=== PATIENT | female | born 1940 | race Caucasian/White ===

== ENCOUNTER 2018-09-30 17:06 | Emergency (ER) | payer MEDICARE, MEDICAID ==
[2018-09-30] MEDS ORDERED: IPRATROPIUM/ALBUTEROL (0.5MG/3MG) NEB INH ONE (17:33)
[2018-09-30] MEDS ORDERED: METHYLPREDNISOLONE PF 125MG/VIAL IVPB ONE (17:36)
--- NOTE | 2018-09-30 17:43 | Emergency Department Record ---
History of Present Illness - General Chief Complaint: Shortness of breath Stated Complaint: SOB Time Seen by Provider: 09/30/18 17:35 Source: Patient Mode of Arrival: Wheelchair Limitations: No limitations - History of Present Illness Initial Comments: 78 yo female presents to ED for evaluation of shortness of breath for the past several weeks. Patient reports that her symptoms began as a sinus infection which then "when into my lungs". Patient does report a history of asthma, has been using a nebulizer at home as needed. Patient denies fevers, chills, productive cough symptoms, or chest discomfort symptoms. Patient does report wheezing symptoms. MD Complaint: Shortness of breath Onset/Timin -: Week(s) Severity: Moderate Consistency: Intermittent Improves With: Bronchodilators Worsens With: Coughing, Exertion Known History Of: Asthma Associated Symptoms: Cough Treatments Prior to Arrival: Bronchodilator - Related Data Home Oxygen Therapy: No Home Oxygen Amount: none Allergies Allergy/AdvReac Type Severity Reaction Status Date / Time Penicillins [PENICILLINS] Allergy Unknown facial Unverified 09/30/18 17:30 swelling Travel Screening - Travel/Exposure Within Last 30 Days Have you traveled within the last 30 days?: No Review of Systems Constitutional: Denies: Chills, Fever, Malaise, Night sweats Eyes: Denies: Eye discharge, Eye pain ENT: Reports: Congestion. Denies: Ear pain, Epistaxis Respiratory: Reports: Cough, Dyspnea, Wheezes Cardiovascular: Reports: Dyspnea on exertion. Denies: Chest pain Endocrine: Denies: Fatigue, Heat or cold intolerance Gastrointestinal: Denies: Constipation, Nausea, Vomiting Genitourinary: Denies: Incontinence, Retention Musculoskeletal: Denies: Arthralgia, Back pain Skin: Denies: Bruising, Change in color Neurological: Denies: Abnormal gait, Confusion, Headache, Tingling, Tremors Psychiatric: Denies: Anxiety Hematological/Lymphatic: Denies: Anemia, Blood Clots Past Medical History - SOCIAL HISTORY Smoking Status: Former smoker Alcohol Use: None Drug Use: None - RESPIRATORY Hx Respiratory Disorders: Yes Hx Asthma: Yes Hx Bronchitis: Yes Hx COPD: Yes - CARDIOVASCULAR Hx Cardio Disorders: Yes Hx Hypertension: Yes - NEURO Hx Neuro Disorders: No - GI Hx GI Disorders: No - Hx Genitourinary Disorders: Yes Hx UTI: Yes - ENDOCRINE Hx Endocrine Disorders: Yes Hx Diabetes: Yes (type 2) - MUSCULOSKELETAL Hx Musculoskeletal Disorders: No - PSYCH Hx Psych Problems: Yes Hx Depression: Yes - HEMATOLOGY/ONCOLOGY Hx Hematology/Oncology Disorders: No Family Medical History Any Significant Family History?: No Physical Exam - General General Appearance: Alert, Oriented x3, Cooperative, Moderate distress, Other ( Mild respiratory distress on examination c/w tachypnea, mild-moderate wheezes bilaterally, decreased BS bilaterally) Limitations: No limitations - Head Head exam: Atraumatic, Normocephalic Head exam detail: negative: Abrasion, Contusion, Vazquez's sign, General tenderness, Hematoma, Laceration - Eye Eye exam: Normal appearance. negative: Conjunctival injection, Periorbital swelling, Periorbital tenderness, Scleral icterus - ENT Ear exam: negative: Auricular hematoma, Auricular trauma Nasal Exam: negative: Active bleeding, Discharge, Dried blood, Foreign body Mouth exam: negative: Drooling, Laceration, Muffled voice, Tongue elevation - Neck Neck exam: Normal inspection. negative: Meningismus, Tenderness - Respiratory Respiratory exam: Prolonged expiratory, Wheezes. negative: Rhonchi, Stridor - Cardiovascular Cardiovascular Exam: Regular rate, Normal rhythm, Normal heart sounds - GI/Abdominal GI/Abdominal exam: Soft. negative: Distended, Rebound, Rigid, Tenderness - Rectal Rectal exam: Deferred - exam: Deferred - Extremities Extremities exam: Pedal edema, Other (Mild-moderate lower extremity edema bilaterally). negative: Tenderness - Back Back exam: Denies: CVA tenderness (R), CVA tenderness (L) - Neurological Neurological exam: Alert, Normal gait, Oriented X3 - Psychiatric Psychiatric exam: Normal affect, Normal mood - Skin Skin exam: Normal color. negative: Abrasion Type of lesion: negative: abrasion Course Vital Signs 09/30/18 17:12 Temperature 97.5 F L Pulse Rate 80 Respiratory 24 Rate Blood Pressure 137/88 Pulse Ox 92 L - Reevaluation(s) Reevaluation #1: 09/30/18 17:59 EKG: NSR 71, PVCs present Normal axis, normal intervals No acute ST-T wave changes are present Reevaluation #2: 09/30/18 18:21 Laboratory studies were reviewed and are grossly unremarkable for an acute process except for: Troponin 0.032. Patient is currently in radiology. Reevaluation #3: 09/30/18 18:38 Patient was reassessed, BS are improved on re-examination. Awaiting CXR interpretation. Reevaluation #4: 09/30/18 18:56 Case was discussed with Dr. Daly, as the patient's troponin is elevated, will prefer transfer to a cath-lab capable facility for evaluation. CXR: Possible RLL infiltrate. Rocephin 1 gram ordered to infuse, page sent to Dr. Hutchison for transfer to [facility] per patient choice. Reevaluation #5: 09/30/18 19:06 Case was discussed with Dr. Hutchison, will accept admission for transfer at this time. Medical Decision Making - Lab Data Result diagrams: 09/30/18 17:35 09/30/18 17:35 Disposition Disposition: Transfer Clinical Impression: Elevated troponin CAP (community acquired pneumonia) Qualifiers: Laterality: right Lung location: lower lobe of lung Qualified Code(s): J18.1 - Lobar pneumonia, unspecified organism Disposition: Acute Care Hospital Transfer Transfer To: [facility] Reason For Transfer: CAP, Elevated troponin Accepting Physician: Foster Time Discussed w/Accepting Physician: 19:00 Condition: (2) Stable Forms: Patient Portal Access Time of Disposition: 19:00 Quality - Quality Measures Quality Measures: N/A - Blood Pressure Screening Does Patient Have Any of the Following: Active Dx of HTN Blood Pressure Classification: Pre-Hypertensive BP Reading Systolic Measurement: 137 Diastolic Measurement: 88 Screening for High Blood Pressure: Patient Exclusion, Hx of HTN [G9744]
[2018-09-30] MEDS ORDERED: 0.9 % SODIUM CHLORIDE 1000ML 1,000 ML IV SCH (17:45)
[2018-09-30 17:54] LABS: BASO % 0.5 % (0-6); EOS % 4.6 % (0-6); GRAN % 50.7 % (47-80); HEMATOCRIT 38.2 % (35.0-47.0); HEMOGLOBIN 12.6 gm/dl (11.6-16.0); LYMPH % 37.5 % (16-45); MEAN CELL VOLUME 95.5 fl (81-97); MEAN CORPUSCULAR HEMOGLOBIN 31.5 pg (27-33); MEAN PLATELET VOLUME 9.8 fl (7.4-10.4); MONO % 6.7 % (0-9); PLATELET COUNT 328 K/uL (130-400); RED CELL DISTRIBUTION WIDTH 12.9 % (11.5-14.5)
[2018-09-30 18:03] LABS: BILIRUBIN,TOTAL 0.2 mg/dL (0.2-1.0); CREATININE 1.2 mg/dL (0.5-0.9)
[2018-09-30 18:09] LABS: ALB/GLOB RATIO 1.4 (1.1-1.8); ALBUMIN 4.1 g/dL (4.0-5.0)
[2018-09-30 18:11] LABS: NTpro B-NATRIURETIC PEPTIDE 188.7 pg/mL (<450)
[2018-09-30] MEDS ORDERED: CEFTRIAXONE 1GM/50ML BAG IVPB SCH (19:00)
--- NOTE | 2018-10-02 22:26 | RADIOLOGY REPORT ---
EXAM: CHEST 2 VIEWS HISTORY: UNPRODUCTIVE COUGH. TECHNIQUE: Two views of the chest. COMPARISON: Chest radiograph 11/09/2013. FINDINGS: Cardiac silhouette within normal size limits. Thoracic aorta is calcified and mildly tortuous. Questionable subtle right lower lobe opacity. Otherwise, no focal pulmonary consolidation. No pleural effusion or pneumothorax. IMPRESSION: QUESTIONABLE SUBTLE RIGHT LOWER LOBE OPACITY; COULD REPRESENT ATELECTASIS OR AIR -SPACE DISEASE. JOB NUMBER: [id number] MTDD
== END 2018-09-30 21:22 | disposition short-term general hospital (02) ==
LOC: ER 17:06
DX: R79.89 Other specified abnormal findings of blood chemistry (principal); J18.1 Lobar pneumonia, unspecified organism; R60.0 Localized edema; R06.02 Shortness of breath; J44.9 Chronic obstructive pulmonary disease, unspecified; I10 Essential (primary) hypertension; Z87.891 Personal history of nicotine dependence
CPT/HCPCS: 99285 ×2; 96374; 96375; 85025; 80053; 84484; 83880; 71046; 94640; 93005; 93010; J0696; J2930; J7030

== ENCOUNTER 2019-07-12 16:58 | Inpatient (IN) | payer MEDICARE, MEDICAID ==
[2019-07-12] MEDS ORDERED: HYDROCODONE/APAP 5/325MG TABLET PO PRN (17:12)
[2019-07-12] MEDS ORDERED: ALBUTEROL SULFATE (0.083%) 2.5 MG/3 ML NEB INH PRN (17:13)
[2019-07-12] MEDS ORDERED: VANCOMYCIN 1GM/200ML PREMIX 1 GM/200 ML PIGGYBACK IVPB SCH (17:15)
[2019-07-12 17:59] LABS: ABSOLUTE NEUTROPHIL COUNT 6.99; BASO % 0.3 % (0-6); EOS % 1.5 % (0-6); GRAN % 60.8 % (47-80); HEMATOCRIT 37.6 % (35.0-47.0); HEMOGLOBIN 11.8 gm/dl (11.6-16.0); LYMPH % 28.6 % (16-45); MEAN CELL VOLUME 95.2 fl (81-97); MEAN CORPUSCULAR HEMOGLOBIN 29.9 pg (27-33); MEAN CORPUSCULAR HGB CONC 31.4 g/dl (32-36); MEAN PLATELET VOLUME 9.7 fl (7.4-10.4); MONO % 8.8 % (0-9); PLATELET COUNT 387 K/uL (130-400); RED BLOOD COUNT 3.95 M/uL (3.80-5.40); RED CELL DISTRIBUTION WIDTH 12.6 % (11.5-14.5); WHITE BLOOD COUNT W/O DIFF 11.5 K/uL (4.2-12.2)
[2019-07-12] MEDS ORDERED: FLU VAC QS 2019-20 (INPT, 6MO+) 60MCG/0.5ML IM ONE (18:05)
[2019-07-12 18:30] LABS: BILIRUBIN,TOTAL 0.3 mg/dL (0.2-1.0); CREATININE 1.2 mg/dL (0.5-0.9)
[2019-07-12 18:31] LABS: TOTAL PROTEIN 7.7 g/dL (6.6-8.7)
[2019-07-12 18:35] LABS: ALB/GLOB RATIO 1.2 (1.1-1.8); ALBUMIN 4.2 g/dL (4.0-5.0)
--- NOTE | 2019-07-12 19:01 | ULTRASOUND REPORT ---
EXAMINATION: Left Lower Extremity Venous Duplex Doppler Ultrasound EXAM DATE: 07/12/2019 6:55 PM TECHNIQUE: Real-time B-mode imaging with and without compression was used to evaluate the left lower extremity for deep venous thrombosis (DVT). Duplex Doppler with color and spectral Doppler was used . INDICATION: venous stasis ulcer COMPARISON: None FINDINGS: Left Common Femoral Vein: No DVT. Left Femoral Vein: No DVT. Left Popliteal Vein: No DVT. Left Proximal Deep Femoral Vein: No DVT. Left Posterior Tibial Veins: No DVT. Left Peroneal Veins: No DVT. Left proximal Great Saphenous Vein: No thrombus. Duplex Doppler: Spectral Doppler waveforms show normal respiratory phasicity in the common femoral vein. Additional Findings: The left external iliac vein could not compress to inguinal tenderness, but nor mal color flow is seen in the external iliac vein. IMPRESSION: There is no deep venous thrombosis in the visualized deep veins of the left lower extremity. Dictated by: Dann Hameed MD on 07/12/2019 6:57 PM. .
[2019-07-12] MEDS: PREGABALIN 25 MG CAPSULE PO SCH (22:16)
[2019-07-13 06:55] LABS: ABSOLUTE NEUTROPHIL COUNT 5.32; BASO % 0.3 % (0-6); EOS % 2.4 % (0-6); GRAN % 54.9 % (47-80); HEMATOCRIT 35.6 % (35.0-47.0); LYMPH % 33.2 % (16-45); MEAN CELL VOLUME 95.4 fl (81-97); MEAN CORPUSCULAR HGB CONC 30.9 g/dl (32-36); MEAN PLATELET VOLUME 9.7 fl (7.4-10.4); MONO % 9.2 % (0-9); PLATELET COUNT 395 K/uL (130-400); RED BLOOD COUNT 3.73 M/uL (3.80-5.40); RED CELL DISTRIBUTION WIDTH 12.6 % (11.5-14.5); WHITE BLOOD COUNT W/O DIFF 9.7 K/uL (4.2-12.2)
[2019-07-13 06:57] LABS: MEAN CORPUSCULAR HEMOGLOBIN 29.4 pg (27-33)
[2019-07-13 07:01] LABS: CREATININE 1.2 mg/dL (0.5-0.9)
[2019-07-13] MEDS ORDERED: VANCOMYCIN 1GM/200ML PREMIX 1 GM/200 ML PIGGYBACK IVPB SCH ×2 (08:00→20:00)
--- NOTE | 2019-07-13 08:32 | History & Physical ---
History of Present Illness - Date of Service Date of Service for History & Physical: 07/13/19 - History of Present Illness Admitting Diagnosis: cellulitis, venous stasis ulcer History of Present Illness: Mrs. King is a 79 y/o female here with left leg wound due to venous stasis ulcer. She states that the area is painful and warm and became itchy over the last few days. She stopped wearing the wound dressing because she says its been itchy and it causes her to scratch it. The patient was seen in the Family Practice yesterday afternoon by her PCP Yvonne Roman who observed that the wound was oozing and foul smelling. The patient has had wound care but had some difficult with follow up with them and also has some memory issues which makes managing her medications hard. Venous duplex Us was negative for DVT. CBC w/ diff and CMP were unremarkable. Wound culture was taken in the office and blood cultures taken on the inpatient unit are both pending. The patient was directly admitted and started on IV Vancomycin with renal dosing and wet to dry wound dressing. On rounds this morning the patient is awake, alert and oriented but does have some memory issues. She says that she feels good and that the wound looked better this morning when it was undressed. PCP: Yvonne Roman NP. Travel Screening - Travel/Exposure Within Last 30 Days Have you traveled within the last 30 days?: No - Travel/Exposure Within Last Year Have you traveled outside the [place] in the last year?: No - Additonal Travel Details Have you been exposed to anyone with a communicable illness?: No Past Medical History - SOCIAL HISTORY Smoking Status: Former smoker Alcohol Use: None Drug Use: None - RESPIRATORY Hx Respiratory Disorders: Yes Hx Asthma: Yes Hx Bronchitis: Yes Hx COPD: Yes - CARDIOVASCULAR Hx Cardio Disorders: Yes Hx Hypertension: Yes - NEURO Hx Neuro Disorders: No - GI Hx GI Disorders: No - Hx Genitourinary Disorders: Yes Hx UTI: Yes - ENDOCRINE Hx Endocrine Disorders: Yes Hx Diabetes: Yes (type 2) - MUSCULOSKELETAL Hx Musculoskeletal Disorders: No - PSYCH Hx Psych Problems: Yes Hx Depression: Yes - HEMATOLOGY/ONCOLOGY Hx Hematology/Oncology Disorders: No Family Medical History Any Significant Family History?: No H&P Meds/Allergies - Allergies Allergies: Allergies Allergy/AdvReac Type Severity Reaction Status Date / Time Penicillins [PENICILLINS] Allergy Unknown facial Unverified 07/12/19 16:19 swelling - Active Medications Active Medications: Current Medications Hydrocodone Bitart/Acetaminophen ([place] 5mg/325mg) 1 each PO Q6H PRN PRN Reason: PAIN - MILD TO MODERATE (1-7) Albuterol Sulfate (Albuterol Sulfate) 2.5 mg INH RESP.Q4H.WA PRN PRN Reason: DIFFICULTY IN BREATHING Enoxaparin Sodium (Lovenox) 30 mg SQ DAILY [facility] VANCOMYCIN 1GM/200ML PREMIX (Vancomycin 1 Gram/200 Ml Bag) 1 gm in 200 mls @ 200 mls/hr IVPB 0800,1999 [facility] Pregabalin (Lyrica) 25 mg PO BID FABRICIO Last Admin: 07/12/19 22:16 Dose: 25 mg Documented by: Physical Exam - Vital Signs Vital Signs: Vital Signs - Last 24 Hrs Temp Pulse Resp BP Pulse Ox 07/13/19 06:00 98.1 F 97 H 20 159/56 94 L 07/13/19 01:31 98.2 F 102 H 20 161/57 92 L 07/12/19 20:00 98.3 F 95 H 20 167/87 93 L 07/12/19 17:15 97.8 F 92 H 17 149/83 97 - General General Appearance: Alert, Oriented x3, Cooperative - Respiratory Respiratory exam: Normal lung sounds bilaterally - Cardiovascular Peripheral Pulses: 2+: Radial (R), Radial (L), Dorsalis Pedis (R), Dorsalis Pedis (L) - GI/Abdominal GI/Abdominal exam: Soft, Normal bowel sounds - Extremities Extremities exam: Calf tenderness (left calf tenderness ), Other (ulceration of the left posterior tibia ) - Neurological Neurological exam: Alert, Altered - Skin Skin exam: Other (ulceration of left posterior calf measuring approx 5x5cm in diameter, pink granulation tissue at edges, no weeping. ) Results - Labs Result Diagrams: 07/13/19 06:11 07/13/19 06:11 Labs Last 24 Hours: Laboratory Results - last 24 hr 07/12/19 07/12/19 07/13/19 17:20 17:20 06:11 WBC 11.5 RBC 3.95 Hgb 11.8 Hct 37.6 MCV 95.2 MCH 29.9 MCHC 31.4 L RDW 12.6 Plt Count 387 MPV 9.7 Gran % 60.8 Lymphocytes % 28.6 Monocytes % 8.8 Eosinophils % 1.5 Basophils % 0.3 Absolute Neutrophils 6.99 Sodium 140 140 Potassium 3.6 3.6 Chloride 95 L 96 L Carbon Dioxide 29.0 31.0 H Anion Gap 16.0 13.0 BUN 29 H 25 H Creatinine 1.2 H 1.2 H Estimated GFR 46 46 Random Glucose 95 108 Calcium 9.8 9.5 Total Bilirubin 0.30 AST 20 ALT 15 Alkaline Phosphatase 97 NT-Pro-B Natriuret Pep 243.00 Total Protein 7.7 Albumin 4.2 Globulin 3.5 Albumin/Globulin Ratio 1.2 Procalcitonin 0.122 07/13/19 06:11 WBC 9.7 RBC 3.73 L Hgb 11.0 L Hct 35.6 MCV 95.4 MCH 29.4 MCHC 30.9 L RDW 12.6 Plt Count 395 MPV 9.7 Gran % 54.9 Lymphocytes % 33.2 Monocytes % 9.2 H Eosinophils % 2.4 Basophils % 0.3 Absolute Neutrophils 5.32 Sodium Potassium Chloride Carbon Dioxide Anion Gap BUN Creatinine Estimated GFR Random Glucose Calcium Total Bilirubin AST ALT Alkaline Phosphatase NT-Pro-B Natriuret Pep Total Protein Albumin Globulin Albumin/Globulin Ratio Procalcitonin VTE H&P Assessment - Risk for VTE Risk for VTE: Yes Risk Level: High Risk Assessment Date: 07/13/19 Risk Assessment Time: 11:29 VTE Orders Placed or Will Be Placed: Yes Plan - Inpatient Certification Inpatient Certification: Admit to inpatient care: Based on my medical assessment, after consideration of patient's risk factors (age, co-morbidities and patient presenting symptoms and acuity), I expect that this patient will remain in the hospital greater than or equal to two midnights and that the services needed warrant inpatient care because: Patient Risk Factors: Cellulitis Estimated length of stay: [] The patient may reasonably be expected to be discharged or transferred to a hospital within 96 hours after admission to [facility]. Services needed: [] Post hospital care (if known): [] I certify that my determination is in accordance with my understanding of Medicare requirements for reasonable and necessary inpatient services. 07/13/19 11:38 - Detailed Diagnosis and Plan (1) Venous stasis ulcer Current Visit: Yes Status: Acute Base Code: I83.009 - VARICOSE VEINS OF UNSP LOWER EXTREMITY W ULCER OF UNSP SITE; L97.909 - NON-PRS CHRONIC ULC UNSP PRT OF UNSP LOW LEG W UNSP SEVERITY Comment: 07/13/19: - Venous stasis ulcer of the left posterior calf. - CBC w/ diff wnl, pending wound and blood cultures. - Vancomycin IV 1gm Q24H, wet to dry dressing and elevation. - Wound care scheduled for Thursday of next week at discharge. (2) Diabetes mellitus, type II Current Visit: Yes Status: Acute Base Code: E11.9 - TYPE 2 DIABETES MELLITUS WITHOUT COMPLICATIONS Comment: 07/13/19: - Last Ha1c 6.7% - Resume home dose of Tradjenta 5mg daily from home meds since not on formulary. -Accuchecks Q12H and ADA diet. (3) COPD (chronic obstructive pulmonary disease) Current Visit: Yes Status: Acute Base Code: J44.9 - CHRONIC OBSTRUCTIVE PULMONARY DISEASE, UNSPECIFIED Comment: 07/13/19: - Pt on Trelegy at home. - 3 liter nasal cannul oxygen continuous. - Albuterol Q4H PRN (4) Hypertension Current Visit: Yes Status: Acute Base Code: I10 - ESSENTIAL (PRIMARY) HYPERTENSION Comment: 07/13/19: - Resume Coreg, Losaratan, Norvasc with holding parametrs for SBP < 120. (5) DVT prophylaxis Current Visit: Yes Status: Acute Base Code: Z29.9 - ENCOUNTER FOR PROPHYLACTIC MEASURES, UNSPECIFIED Comment: 07/13/19: - Ambulation encouraged. - Lovenox 30mg QD (6) Full code status Current Visit: Yes Status: Acute Base Code: Z78.9 - OTHER SPECIFIED HEALTH STATUS Comment: 07/13/19: - The patient is full code status.
[2019-07-13] MEDS: PREGABALIN 25 MG CAPSULE PO SCH (09:33)
[2019-07-13] MEDS ORDERED: ASPIRIN 81 MG TABEC PO SCH (10:00)
[2019-07-13] MEDS ORDERED: AMLODIPINE BESYLATE 5MG TAB PO SCH (10:00)
[2019-07-13] MEDS ORDERED: CHLORTHALIDONE 25 MG TABLET PO SCH (10:00)
[2019-07-13] MEDS ORDERED: CARVEDILOL 12.5 MG TABLET PO SCH (10:00)
[2019-07-13] MEDS ORDERED: SPIRONOLACTONE 25 MG TAB PO SCH (10:00)
[2019-07-13] MEDS ORDERED: ENOXAPARIN 30 MG/0.3 ML SYR SQ SCH (10:00)
[2019-07-13] MEDS ORDERED: LOSARTAN POTASSIUM 100 MG TABLET PO SCH (10:00)
[2019-07-13] MEDS ORDERED: MONTELUKAST SODIUM 10MG TABLET PO SCH (10:00)
--- NOTE | 2019-07-13 15:49 | Discharge Summary ---
Providers Discharge Summary Date: 07/13/19 Date of admission: 07/12/19 16:58 Attending physician: MCKENZIE HELMS Primary care physician: Yvonne Roman N.P. Physical Exam - Vital Signs Vital Signs: Vital Signs - Last 24 Hrs Temp Pulse Resp BP Pulse Ox 07/13/19 10:50 158/96 07/13/19 09:04 97.9 F 80 16 129/73 97 07/13/19 06:00 98.1 F 97 H 20 159/56 94 L 07/13/19 01:31 98.2 F 102 H 20 161/57 92 L 07/12/19 20:00 98.3 F 95 H 20 167/87 93 L 07/12/19 17:15 97.8 F 92 H 17 149/83 97 - General General Appearance: Alert, Oriented x3, Cooperative - Respiratory Respiratory exam: Normal lung sounds bilaterally - Cardiovascular Peripheral Pulses: 2+: Radial (R), Radial (L), Dorsalis Pedis (R), Dorsalis Pedis (L) - GI/Abdominal GI/Abdominal exam: Soft, Normal bowel sounds - Extremities Extremities exam: Calf tenderness (left calf tenderness ), Other (ulceration of the left posterior tibia ) - Neurological Neurological exam: Alert, Altered - Skin Skin exam: Other (ulceration of left posterior calf measuring approx 5x5cm in diameter, pink granulation tissue at edges, no weeping. ) Hospitalization - Hospitalization Admission Diagnosis: cellulitis, venous stasis ulcer - Problem List/Discharge Diagnosis (1) Venous stasis ulcer Current Visit: Yes Status: Acute Base Code: I83.009 - VARICOSE VEINS OF UNSP LOWER EXTREMITY W ULCER OF UNSP SITE; L97.909 - NON-PRS CHRONIC ULC UNSP PRT OF UNSP LOW LEG W UNSP SEVERITY Comment: 07/13/19: - Venous stasis ulcer of the left posterior calf. - CBC w/ diff wnl, pending wound and blood cultures. - Vancomycin IV 1gm Q24H, wet to dry dressing and elevation. - Wound care scheduled for Thursday of next week at discharge. (2) Diabetes mellitus, type II Current Visit: Yes Status: Acute Base Code: E11.9 - TYPE 2 DIABETES MELLITUS WITHOUT COMPLICATIONS Comment: 07/13/19: - Last Ha1c 6.7% - Resume home dose of Tradjenta 5mg daily from home meds since not on formulary. -Accuchecks Q12H and ADA diet. (3) COPD (chronic obstructive pulmonary disease) Current Visit: Yes Status: Acute Base Code: J44.9 - CHRONIC OBSTRUCTIVE PULMONARY DISEASE, UNSPECIFIED Comment: 07/13/19: - Pt on Trelegy at home. - 3 liter nasal cannul oxygen continuous. - Albuterol Q4H PRN (4) Hypertension Current Visit: Yes Status: Acute Base Code: I10 - ESSENTIAL (PRIMARY) HYPERTENSION Comment: 07/13/19: - Resume Coreg, Losaratan, Norvasc with holding parametrs for SBP < 120. (5) DVT prophylaxis Current Visit: Yes Status: Acute Base Code: Z29.9 - ENCOUNTER FOR PROPHYLACTIC MEASURES, UNSPECIFIED Comment: 07/13/19: - Ambulation encouraged. - Lovenox 30mg QD (6) Full code status Current Visit: Yes Status: Acute Base Code: Z78.9 - OTHER SPECIFIED HEALTH STATUS Comment: 07/13/19: - The patient is full code status. - Hospitalization Course Hospital Course: Mrs. King is a 79 y/o female here with left leg wound due to venous stasis ulcer. She states that the area is painful and warm and became itchy over the last few days. She stopped wearing the wound dressing because she says its been itchy and it causes her to scratch it. The patient was seen in the Family Practice yesterday afternoon by her PCP Yvonne Roman who observed that the wound was oozing and foul smelling. The patient has had wound care but had some difficult with follow up with them and also has some memory issues which makes managing her medications hard. Venous duplex Us was negative for DVT. CBC w/ diff and CMP were unremarkable. Wound culture was taken in the office and blood cultures taken on the inpatient unit are both pending. The patient was directly admitted and started on IV Vancomycin with renal dosing and wet to dry wound dressing. On rounds this morning the patient is awake, alert and oriented but does have some memory issues. She says that she feels good and that the wound looked better this morning when it was undressed. PCP: Yvonne Roman NP. Procedures: Imaging and X-Rays 07/12/19 17:06 VENOUS DOPPLER LOWER EXT LT [US] Stat Cardiology Procedures 07/12/19 17:04 Gas Leak Inspector Helper .Continuous Abnormal Labs: Abnormal Lab Results 07/12/19 07/12/19 07/13/19 Range/Units 17:20 17:20 06:11 RBC (3.80-5.40) M/uL Hgb (11.6-16.0) gm/dl MCHC 31.4 L (32-36) g/dl Monocytes % (0-9) % Chloride 95 L 96 L (98-107) mmol/L Carbon Dioxide 31.0 H (22-29) mmol/L BUN 29 H 25 H (8-23) mg/dL Creatinine 1.2 H 1.2 H (0.5-0.9) mg/dL 07/13/19 Range/Units 06:11 RBC 3.73 L (3.80-5.40) M/uL Hgb 11.0 L (11.6-16.0) gm/dl MCHC 30.9 L (32-36) g/dl Monocytes % 9.2 H (0-9) % Chloride (98-107) mmol/L Carbon Dioxide (22-29) mmol/L BUN (8-23) mg/dL Creatinine (0.5-0.9) mg/dL Discharge Medications - Discharge Medications Home Medications: Ambulatory Orders Aspirin 81 mg PO QD tab.chew 10/16/17 [Last Taken Unknown] Diphenhydramine HCl [Benadryl] 25 mg PO QHS cap 10/16/17 [Last Taken Unknown] Multivit-Min/Iron/Folic/Lutein [Centrum Silver Women Tablet] 1 each PO DAILY tab 10/16/17 [Last Taken Unknown] Sulfamethoxazole/Trimethoprim [Bactrim Ds Tablet] 1 each PO Q12HR #20 tablet 07/13/19 [Last Taken Unknown] Discharge Plan - Discharge Instructions Activity at Discharge: Increase Activity as Tolerated Additional Instructions: [facility] will see you at home. They will contact you, but can be reached at [phone] Appointments have been scheduled for you as follows: [facility] on July 18 at 3:30PM [phone] Yvonne at [facility] on July 20 at 2:20PM Continue using Bactrim DS twice daily for the next 10 days. Resume all other home medications as prescribed. If you have increasing pain or more oozing from the wound please call your PCP for further instructions. Quality Measures - Quality Measures Quality Measures: Advance Directives, Documentation of Current Medications in Medical Record, Elder Maltreatment Screen and Follow-Up Plan, Screening for High Blood Pressure and F/U Documented - Current Medications Quality Measure: Measure #130: Documentation of Current Medications Documentation of Current Medications: <Current Medications Documented/Reviewed> [B2330] - Blood Pressure Screening Quality Measure: Screening for High Blood Pressure and Follow-Up Documented Does Patient Have Any of the Following: Active Dx of HTN Blood Pressure Classification: Hypertensive Reading Systolic Measurement: 158 Diastolic Measurement: 96 Screening for High Blood Pressure: Patient Exclusion, Hx of HTN [G9744] - Advance Directives Quality Measure: Measure #47: Care Plan Advance Directives Established: No Advance Directives Information Provided To Patient: No Advance Directives on File: No Advance Care Planning: <Care Plan/Decision Maker Documented; Discussed & Documented> [8700F] - Elder Abuse Suspicion Index Screening: Elder Abuse Suspicion Index Screening Rely on people for bathing, dressing, shopping, banking, etc: Yes Prevented from getting food, clothes, medication, etc: No Made to feel shamed or threatened by someone: No Forced to sign papers or use money against will: No Feel afraid, touched in ways not wanted or hurt physically: No Poor eye contact, withdrawn, malnourished, cuts or bruises: No Screening Result: Negative result EASI Reference Information: Regla MARIA, Teto C, Khoi D, Peter Hansen.Development and validation of a tool to assist physicians identification of elder abuse: The Elder Abuse Suspicion Index (EASI ). Journal of Elder Abuse and Neglect, 2008; 20 (3): 276-300. - Elder Maltreatment Screen Quality Measures: Elder Maltreatment Screen and Follow-Up Plan Elder Maltreatment Screen: <Negative, No Follow-Up Plan Required> [Z7540]
== END 2019-07-13 17:25 | disposition home or self-care (01) | DRG 301 ==
LOC: MEDSURG 16:58
PROVIDERS: ADMIT Internal Medicine; ATTEND Internal Medicine
DX: I83.009 Varicose veins of unspecified lower extremity with ulcer of unspecified site (principal); I10 Essential (primary) hypertension; J44.9 Chronic obstructive pulmonary disease, unspecified; E11.9 Type 2 diabetes mellitus without complications; J45.909 Unspecified asthma, uncomplicated; Z87.891 Personal history of nicotine dependence; Z29.9 Encounter for prophylactic measures, unspecified
CPT/HCPCS: 80048; 80053; 83880; 84145; 85025; 87040; 99223; J1650; J3370